=== PATIENT | male | born 1950 | race Caucasian/White ===

== ENCOUNTER → 2017-12-26 | Outpatient (CLI) | payer OTHER | LOC: BHFA 09:30 | PROVIDERS: ATTEND Internal Medicine Interventional Cardiology | DX: I25.10 Atherosclerotic heart disease of native coronary artery without angina pectoris (principal); I48.92 Unspecified atrial flutter; I35.1 Nonrheumatic aortic (valve) insufficiency; I34.0 Nonrheumatic mitral (valve) insufficiency ==

== ENCOUNTER → 2018-03-04 | Outpatient (CLI) | payer OTHER | LOC: BHFA 09:15 | PROVIDERS: ATTEND Internal Medicine | DX: I48.91 Unspecified atrial fibrillation (principal) ==

== ENCOUNTER 2018-04-24 06:30 | Day surgery (SDC) | payer OTHER ==
[2018-04-24] MEDS ORDERED: MIDAZOLAM 2 MG/2 ML VIAL IVP ONE (06:35)
[2018-04-24] MEDS ORDERED: fentaNYL 100 MCG/2 ML INJ IVP ONE (06:35)
[2018-04-24] MEDS ORDERED: NS 500 ML IV ONE (06:35)
[2018-04-24] MEDS ORDERED: ATROPINE SULFATE 1 MG/10 ML SYR IVP ONE (06:35)
[2018-04-24 07:24] LABS: INR 1.14 (0.83-1.16); PROTIME(PATIENT) 14.8 SEC (12.0-15.0)
--- NOTE | 2018-04-24 08:09 | PDGENHP ---
History & Physical Chief Complaint: Atrial flutter History of Present Illness: 67 yo male with known atrial flutter, hx. of progrsseive valvular heart disease borouth to CVC for elective cardioversion. He is properly anticoagulated. Pertinent Past, Social, Family History: see previous Hand P. No changes. Relevant Physical Exam: 110/70 76 irreg. No JVP. Chest is clear. Cor is iiiregular, 3/6 systolic murmur. ext. No edema. Alert orietned. No focal neurologic findings. facial symetry,. Cardiorespiratory Assessment: 1. Atrial flutter, rate controlled, anticoagulated for cardioversion today.
--- NOTE | 2018-04-24 08:29 | PDANEPAE ---
ANE History of Present Illness A-flutter ANE Past Medical History - Cardiovascular History Hx Arrhythmias: Yes - Pulmonary History Hx Sleep Apnea: Yes - Endocrine History Hx Diabetes: No - Chronic Pain History Chronic Pain: No ANE Review of Systems Review of Systems: ANE Patient History - Allergies Allergies/Adverse Reactions: No Known Allergies Allergy (Unverified 08/05/12 10:58) - Home Medications Home medications: home medication list seen and reviewed Home Medications: Multivitamins [Multivitamin (*)] 1 each PO DAILY@08/05/12 [Last Taken ] Rosuvastatin Calcium [Crestor 40mg (*)] 20 mg PO Q2D@08/05/12 [Last Taken 02/18 21:00] Aspirin [Aspirin 81mg (*)] 81 mg PO DAILY@03/15/15 [Last Taken 03/15/15 09:00 ] - NPO status NPO Status: no food or drink >8 hours - Anes Hx Anes Hx: no prior problems - Smoking Hx Smoking Status: Never smoked ANE Labs/Vital Signs - Labs Result Diagrams: 04/24/18 07:00 - Vital Signs Height: 175 cm Weight: 86.2 kg ANE Anesthesia Plan Anesthesia Plan: GA with mask (Brief IV GA)
[2018-04-24] MEDS ORDERED: PROPOFOL 200 MG/20 ML VIAL ONE (08:36)
[2018-04-24] MEDS ORDERED: LIDOCAINE 2% 2 ML INJ ONE (08:37)
--- NOTE | 2018-04-24 08:52 | PDTEE1 ---
[facility] Cardioversion Procedure Procedure: electrical cardioversion Indications: other (atrial flutter) Consent: signed and in chart Anticoagulation: eliquis Procedural Details: Pads were placed in anterior-posterior position. Synchronized cardioversion attempt #1: other (70j converted to atrial fibrillation) Synchronized cardioversion attempt #3: 200J Results: normal sinus rhythm Conclusions: successful cardioversion Patient Problems: Problems Problem Status Onset Supraventricular tachycardia Active Atrial fibrillation and flutter Active Bacteremia Acute
--- NOTE | 2018-04-24 08:56 | POSTANESTH ---
Post Anesthetic Evaluation Cardiovascular Status: Similar to Pre-Op Cond Respiratory Status: Similar to Pre-op Cond. Level of Consciousness/Mental Status: Can Participate in Eval Pain Control: Adequate, Prn Tx Ordered Nausea/Vomiting Control: Adequate, Prn Tx Ordered Complications Possibly Related to Anesthesia: None Noted
--- NOTE | 2018-04-24 11:20 | CPEKG ---
Test Reason : OPEN Blood Pressure : / mmHG Vent. Rate : 078 BPM Atrial Rate : 238 BPM P-R Int : 252 ms QRS Dur : 104 ms QT Int : 459 ms P-R-T Axes : 054 008 -20 degrees QTc Int : 523 ms Afib/flut and V-paced complexes Probable left ventricular hypertrophy Borderline T abnormalities, inferior leads Prolonged QT interval Atrial pacing was noted on the prior ECG Confirmed by Casimiro Yuen ([id number]) on 04/24/2018 11:19:51 AM Referred By: Confirmed By:Casimiro Yuen
--- NOTE | 2018-04-24 11:22 | CPEKG ---
Test Reason : OPEN Blood Pressure : / mmHG Vent. Rate : 063 BPM Atrial Rate : 063 BPM P-R Int : 230 ms QRS Dur : 109 ms QT Int : 438 ms P-R-T Axes : 033 008 -24 degrees QTc Int : 449 ms Atrial-paced rhythm Nonspecific T abnormalities, inferior leads Previous ECG with atrial fib/flutter Confirmed by Casimiro Yuen ([id number]) on 04/24/2018 11:22:00 AM Referred By: Confirmed By:Casimiro Yuen
== END 2018-04-24 10:00 | disposition home or self-care (01) ==
LOC: FCATH 06:30
PROVIDERS: ATTEND Internal Medicine Interventional Cardiology
PROC: 5A2204Z Restoration of Cardiac Rhythm, Single (ICD-10-PCS; principal; 2018-04-24)
DX: I48.92 Unspecified atrial flutter (principal); Z79.01 Long term (current) use of anticoagulants
CPT/HCPCS: J0461; J2704

== ENCOUNTER → 2018-05-07 | Outpatient (CLI) | payer OTHER | LOC: BHFA 14:00 | PROVIDERS: ATTEND Internal Medicine Interventional Cardiology | DX: I48.91 Unspecified atrial fibrillation (principal); I48.92 Unspecified atrial flutter ==